=== PATIENT | female | born 1980 | race Caucasian/White ===

== ENCOUNTER 2019-05-23 09:39 | Outpatient (CLI) | payer BC ==
--- NOTE | 2019-05-23 12:33 | ULT ---
SONOGRAM RIGHT UPPER QUADRANT: HISTORY: Right upper quadrant pain. FINDINGS: Small shadowing stones are present within the dependent portion of the gallbladder lumen. The gallbl adder wall is upper limits of normal in thickness at 0.5 cm. No pericholecystic fluid. The common d uct is 0.4 cm. Liver unremarkable without focal mass or intrahepatic biliary dilatation. IMPRESSION: Cholelithiasis. Borderline gallbladder wall thickening without other signs of acute cholecystitis. Clinical correlation regarding other signs and symptoms of acute cholecystitis, such as point tendern ess at the gallbladder fossa, is required. POS: [id number]
== END 2019-05-23 09:40 | disposition home or self-care (01) ==
LOC: ULT 09:39
PROVIDERS: ATTEND Internal Medicine
DX: R10.11 Right upper quadrant pain (principal); K80.20 Calculus of gallbladder without cholecystitis without obstruction; K82.8 Other specified diseases of gallbladder
CPT/HCPCS: 76705; 87338

== ENCOUNTER 2019-08-17 07:30 | Outpatient (CLI) | payer BC ==
[2019-08-17 11:23] LABS: #Eosinphils 0.3 thou/uL (0.0-0.7); #Lymphocytes 1.5 thou/uL (1.20-3.40); #Monocytes 0.5 thou/uL (0.11-0.59); #Neutrophils 5.1 thou/uL (1.40-6.50); %Basophils 0.6 % (0.0-1.0); %Eosinophils 4.5 % (0.0-10.0); %Lymphocytes 20.2 % (21.0-51.0); %Monocytes 6.2 % (0.0-10.0); %Neutrophils 68.6 % (42.0-75.0); Hemoglobin 12.9 g/dL (12.0-16.0); Mean Corpuscular HGB CONC 34.8 g/dL (32.0-36.0); Mean Corpuscular Hemoglobin 31.7 pg (27.0-31.0); Mean Corpuscular Volume 91.1 fL (78.0-98.0); Mean Platelet Volume 7.7 fL (7.4-10.4); Platelet Count 207 thou/uL (130-400); RBC Distribution Width 11.9 % (11.5-14.5); Red Blood Cell (RBC) Count 4.06 mill/uL (4.20-5.40); White Blood Cell (WBC) Count 7.4 thou/uL (4.8-10.8)
[2019-08-17 11:51] LABS: ALT (SGPT) 16 U/L (8-55); AST (SGOT) 14 U/L (5-34); Albumin 4.6 g/dL (3.5-5.0); Alkaline Phosphatase 50 U/L (40-110); Anion Gap 12 mmol/L (10-20); BUN (Urea Nitrogen) 7 mg/dL (7.0-18.7); Bilirubin, Direct 0.2 mg/dL (0.1-0.3); Bilirubin, Total 0.6 mg/dL (0.2-1.2); Calc. Creatinine Clearance 0 mL/min (70-130); Calcium 9.7 mg/dL (7.8-10.44); Carbon Dioxide 29 mmol/L (22-29); Chloride 104 mmol/L (98-107); Estimated GFR-MDRD 89; Glucose 86 mg/dL (70-105); Potassium 4.3 mmol/L (3.5-5.1); Protein, Total 7.1 g/dL (6.0-8.3); Sodium 141 mmol/L (136-145)
== END 2019-08-17 07:31 | disposition home or self-care (01) ==
LOC: LABBT 07:30
PROVIDERS: ATTEND Surgery
DX: Z01.812 Encounter for preprocedural laboratory examination (principal); K80.20 Calculus of gallbladder without cholecystitis without obstruction
CPT/HCPCS: 80048; 80076; 85025

== ENCOUNTER 2019-08-24 09:26 | Day surgery (SDC) | payer BC ==
[2019-08-17 10:51] VITALS: BMI 28.7
[2019-08-24] MEDS ORDERED: Bupivacaine HCl 0.5%/Epinephrine 1:200,000/PF 30 ml Vial ONE (11:20)
[2019-08-24] MEDS ORDERED: Fentanyl 100 MCG/2 ML VIAL ONE ×3 (11:37→12:57)
[2019-08-24] MEDS ORDERED: Rocuronium Bromide 10 MG/ML (10ML VIAL) ONE (12:13)
[2019-08-24] MEDS ORDERED: PROPOFOL 200 MG/20 ML VIAL ONE (12:13)
[2019-08-24] MEDS ORDERED: Glycopyrrolate 0.2 MG/ML 5 ML SYRINGE ONE (12:13)
[2019-08-24] MEDS ORDERED: Lidocaine 1% PF 5 ML VIAL ONE (12:13)
[2019-08-24] MEDS ORDERED: Ketorolac Tromethamine 30 MG/ML VIAL ONE (12:13)
[2019-08-24] MEDS ORDERED: Ondansetron PF 4 MG/2 ML Vial ONE (12:13)
[2019-08-24] MEDS ORDERED: Promethazine HCl 25 MG/ML VIAL ONE (13:43)
[2019-08-24] MEDS ORDERED: HYDROcodone/Acetaminophen 5/325 mg Tablet ONE (14:56)
--- NOTE | 2019-08-24 18:43 | OP ---
DATE OF PROCEDURE: 08/24/2019 PREOPERATIVE DIAGNOSIS: Symptomatic gallstones. POSTOPERATIVE DIAGNOSIS: Symptomatic gallstones. PROCEDURE PERFORMED: Laparoscopic cholecystectomy. ANESTHESIA: General. ESTIMATED BLOOD LOSS: Minimal. COMPLICATIONS: None. SPECIMEN: Gallbladder. FINDINGS: Chronic cholecystitis. PROCEDURE IN DETAIL: The patient was taken to the operating room and laid supine on the operating room table. After general anesthetic was obtained, the abdomen was prepped and draped in a sterile fashion. A curved incision was made below the umbilicus. Cautery was used to dissect down to the umbilical fascia. Umbilical fascia was incised and held up using a Ellis. The abdominal cavity was entered using a Kalpana clamp. Holding stitch of Vicryl was placed on each side of the fascia. Stein trocar was placed. High-flow pneumoperitoneum was obtained. An upper midline 5 mm port and 2 right upper quadrant 5 mm ports were placed under direct camera visualization. The gallbladder was retracted from the gallbladder fossa. The peritoneum of the gallbladder was opened anteriorly and posteriorly. The critical view triangle was seen showing only the cystic duct and cystic artery branching from medial to lateral. There were no other branching structures. Two clips were placed proximally on the cystic duct and one laterally. It was cut using laparoscopic scissors. The cystic artery was taken in the same way. Electrocautery was then used to dissect the gallbladder out of the gallbladder fossa. The gallbladder was placed in an Endo catch bag and brought out through the Stein. There was no bleeding or bile in the liver bed. The cystic duct stump and cystic artery stump were intact, without evidence of extravasation or bleeding. All port sites were infiltrated using local anesthesia. All ports were removed under camera visualization. Pneumoperitoneum was let down. The Vicryl was used to close the fascial defect below the umbilicus. All incisions were irrigated and closed using 4-0 Monocryl and Dermabond. The patient was en route to Recovery in stable condition. All instrument counts, needle counts and lap counts were correct. Job ID: [id number]
== END 2019-08-24 15:10 | disposition home or self-care (01) ==
LOC: SDC 09:26
PROVIDERS: ATTEND Surgery
PROC: 0FT44ZZ Resection of Gallbladder, Percutaneous Endoscopic Approach (ICD-10-PCS; principal; 2019-08-24)
DX: K80.10 Calculus of gallbladder with chronic cholecystitis without obstruction (principal); E03.9 Hypothyroidism, unspecified; Z79.84 Long term (current) use of oral hypoglycemic drugs; Z79.899 Other long term (current) drug therapy
CPT/HCPCS: 88304; J0670; J0690; J1885; J2001; J2405; J2550; J2704; J3010